=== PATIENT | male | born 1995 ===

== ENCOUNTER 2022-09-17 11:32 | Emergency (ER) | payer BC, SELFPAY ==
--- NOTE | ~2022-09-17 | XR_ITS ---
EXAMINATION: XR CHEST CLINICAL INFORMATION: Chest pain. COMPARISON: None available. TECHNIQUE: 2 views of the chest were obtained. FINDINGS: The lungs are clear. The cardiomediastinal silhouette is normal in size. There is no pleural effusion or pneumothorax. No acute osseous abnormality. XR/XR chest 2V IMPRESSION: No acute cardiopulmonary findings.
[2022-09-17 11:54] VITALS: BP 125/83; PULSE 82; RESP 20; TEMP 36.6; O2SAT 98; BMI 37.3
--- NOTE | 2022-09-17 11:57 | ED_ITS ---
HPI - General Adult General Chief complaint: Allergic Reaction Stated complaint: Reaction to Meds Time Seen by Provider: 09/17/22 13:14 Source: patient Mode of arrival: ambulatory Limitations: no limitations History of Present Illness HPI narrative: Patient is a 27 year old assigned male at with a history of depression and anxiety presenting to the emergency department today after an adverse medication reaction. Patient states that he took his first dose of his new Buproprion medication and immediately did not feel right and had what he believes to be a panic attack. Patient denies any dizziness, lightheadedness, abdominal pain, nausea, vomiting, fever, chills, blurry vision, double vision, loss of vision, chest pain, difficulty breathing, shortness of breath, back pain, night sweats, pain with urination, increased urinary frequency, increased urinary urgency, blood in his urine or stool, syncope or a near syncopal episode, recent trauma or falls, bowel incontinence, bladder incontinence, bowel retention, bladder retention, or any other complaints at this time. Onset (ago): hour(s) Relieving factors: none Exacerbating factors: none Associated symptoms: denies other symptoms Treatments prior to arrival: none Related Data Allergies Allergy/AdvReac Type Severity Reaction Status Date / Time bupropion [From Wellbutrin] Allergy Nausea Verified 09/17/22 12:03 Review of Systems Constitutional: Constitutional: Reports no additional constitutional complaints, Denies chills, Denies fever(s) and Denies night sweats Eyes: Eyes: Reports no additional eye complaints, Denies blurry vision, Denies change in vision, Denies diplopia, Denies eye discharge, Denies loss of vision and Denies eye pain ENT: Denies dizziness Cardiovascular: Cardiovascular: Reports no additional cardiovascular complaints, Denies chest pain, Denies lightheadedness, Denies Loss of Consciousness and Denies dyspnea Respiratory: Respiratory: Reports no additional respiratory complaints and Denies dyspnea Gastrointestinal: Gastrointestinal: Reports no additional gastrointestinal complaints, Denies abdominal pain, Denies melena, Denies hematochezia, Denies change in bowel habits and Denies change in stool character Genitourinary: Genitourinary: Reports no additional male genitourinary complaints, Denies hematuria, Denies oliguria, Denies difficulty urinating, Denies dysuria, Denies urinary frequency, Denies urinary hesitancy, Denies ur inary incontinence and Denies urinary urgency Musculoskeletal: Musculoskeletal: Reports no additional musculoskeletal complaints, Denies numbness and Denies tingling Neurologic: Denies dizziness, Denies loss of vision, Denies numbness and Denies tingling Psychiatric: Psychiatric: Reports no additional psychiatric complaints Endocrine: Endocrine: Reports no additional endocrine complaints Hematologic/Lymphatic: Hematologic/Lymphatic: Reports no additional hematologic/lymphatic complaints Allergic/Immunologic: Allergic/Immunologic: Reports no additional allergic/immunologic complaints [facility] Past Medical History Attestation statement: The following information was validated with the patient. Source: old records reviewed and nursing notes reviewed Medical History ADHD Anxiety Depression Social History Social History Alcohol intake: current Alcohol intake frequency: holidays/special occasions only Smoked in Last 30 Days: No Use of substances other than those prescribed or required for medical reasons: Yes Substance Use Type: Marijuana Substance Use Frequency: Daily Advance Directives: No Physical Exam ED Vital Signs: Vital Signs - 24 hr 09/17/22 11:54 09/17/22 13:11 Temperature 97.9 F 98.2 F Pulse Rate 82 68 Respiratory Rate 20 18 Blood Pressure 125/83 128/72 Pulse Oximetry 98 98 Oxygen Delivery Method Room Air Room Air BMI result Body Mass Index 37.3 Const General: cooperative, no acute distress, alert and awake Nutritional Appearance: well nourished Orientation/consciousness: patient oriented x3 Limitations: no limitations [facility] Head: Yes normal to inspection and Yes atraumatic Ears: hearing grossly normal bilaterally and external ears normal General nose exam: Normal external nose present, no nasal discharge noted and no epistaxis Face and sinus: Yes normal facial exam, No abrasion and No laceration Mouth: Normal oral and palatal mucosa present, no drooling and no muffled voice Eyes General: appearance normal, both eyes and all related structures Periorbital: periorbital findings normal Eyelids: Yes eyelids normal Conjunctivae: conjunctivae normal Pupils: Equal, round and reactive pupils present EOM: EOMs intact bilaterally Neck Neck: Yes normal visual inspection, Yes full ROM and Yes no lymphadenopathy Chest Chest palpation & inspection: normal inspection of the chest Resp Effort & Inspection: normal respiratory effort and able to speak in complete sentences Auscultation: clear to auscultation bilaterally Cardio Rate: regular rate Rhythm: regular rhythm GI Inspection: Yes normal to inspection Palpation (GI): Soft to palpation, not firm, nontender and no guarding Neuro General: patient oriented x3 and moves all extremities Cranial nerves: Yes Equal, round and reactive pupils present Cognition (Neuro): normal cognition Motor exam (neuro): 5/5 motor strength present throughout Sensory Exam: Normal double simultaneous stimulation for sensation Coordination: [id number] test normal Extrem General: Yes normal to inspection, Yes full ROM and Yes capillary refill normal Psych Appearance: grossly normal Mental Status: mental status grossly normal Affect: normal affect Attitude: cooperative Thought process: Normal thought process present Thought content: Normal thought content present Insight: Good insight present (Psych) Course Course Course Narrative: RME - This is a rapid medical evaluation, please defer HPI, ROS, PE to main ER provider. 27 y/o M, hx of anxiety and depression, who presents to the ER today for ?adverse medication reaction to Wellbutrin today. Patient states that 1.5 hours after taking dose of Wellbutrin for the first time today, he felt inability to control his emotions, headaches, chest pain, shortness of breath, and nausea. No trouble swallowing, difficulty breathing. He denies SI/HI. VSS in traige. Pt tearful and anxious. Uses psilocybin and marijuana recreationally, denies use today. No other drug use. No etoh use. Pt stable to return to the until treatment room is made available in the main ER. Plan: Labs, EKG ordered. Medical Decision Making Medical Decision Making [facility] Narrative: Patient is a 27 year old assigned male at with a history of anxiety and depression presenting to the emergency department today after an adverse reaction to medication. Patient's physical exam was unremarkable. Patient's blood work was unremarkable. Patient's EKG was unremarkable. Patient's chest x- ray showed no acute process. I explained my physical exam findings as well as all test results to the patient. I answered all questions asked by the patient. I stressed the importance of the patient taking his other medications as prescribed and stopping the buproprion until he see a psychiatrist. I stressed the importance of the patient following up with his primary care provider and a psychiatrist. I stressed the importance of the patient returning to the emerg ency department immediately if his symptoms were to worsen or if he were to develop any dizziness, shortness of breath, difficulty breathing, chest pain, blurry vision, loss of vision, nausea, vomiting, abdominal pain, fever, chills, back pain, or any other complaints. Patient verbalized agreement and understanding with this treatment plan and discharge. Differential Diagnosis Differential Diagnoses: The differential diagnosis associated with the presentation includes medication reaction Lab Data MDM Lab Attestation statement: I reviewed the patient's lab results. 09/17/22 12:34 09/17/22 12:34 Labs: Lab Results 09/17/22 09/17/22 09/17/22 Range/Units 12:34 12:34 12:34 WBC 4.9 (4.8-10.8) X10*3/uL RBC 4.84 (4.60-5.80) X10*6/uL Hgb 15.1 (14.0-18.0) g/dl Hct 42.5 (42.0-52.0) % MCV 87.8 (80.0-98.0) fL MCH 31.2 (27.0-33.0) pg MCHC 35.5 (31.0-36.0) g/dl RDW 11.5 (11.0-16.0) % Plt Count 215 (160-400) X10*3/uL MPV 9.7 (9.4-12.4) fL Immature Gran % (Auto) 0.4 (0.0-0.4) % Neut % (Auto) 67.4 (45-73) % Lymph % (Auto) 24.7 (20-40) % [place] % (Auto) 5.3 (2-11) % Eos % (Auto) 1.8 (0-4) % Baso % (Auto) 0.4 (0-2) % Lymph # (Auto) 1.2 (1.2-4.9) X10*3/uL [place] # (Auto) 0.3 (0.1-1.2) X10*3/uL Eos # (Auto) 0.1 (0.0-0.4) X10*3/uL Baso # (Auto) 0.0 (0.0-0.2) X10*3/uL Abs Immat Gran (auto) 0.02 (0.00-0.03) X10*3/uL Absolute Neuts (auto) 3.3 (2.0-8.3) x10*3/uL Absolute Nucleated RBC 0.000 (0.0-0.012) X10*3/uL Nucleated RBC % (auto) 0.0 (0.0-0.2) /100WBC Sodium 140 (135-145) mmol/L Potassium 4.4 (3.3-5.1) mmol/L Chloride 107 (96-108) mmol/L Carbon Dioxide 22 (22-29) mmol/L Anion Gap 15 (12-20) BUN 20 H (9-16) mg/dL Creatinine 0.83 (0.5-1.4) mg/dL Estim Creat Clear Calc 170.4 Estimated GFR > 60 Random Glucose 119 H (60-115) mg/dL Calcium 9.4 (8.4-10.2) mg/dL Magnesium 2.0 (1.6-2.6) mg/dL Total Bilirubin 1.0 (0.0-1.0) mg/dL Direct Bilirubin 0.2 (0.0-0.5) mg/dL AST 23 (5-37) U/L ALT 35 (0-40) U/L Alkaline Phosphatase 58 (39-117) U/L Troponin I High Sens < 2.7 (<3.5-35.0) ng/L Total Protein 7.0 (6.5-8.0) g/dL Albumin 4.5 (3.5-5.0) g/dL Lipase 25 (8-78) U/L Ethyl Alcohol mg/dL 09/17/22 Range/Units 12:34 WBC (4.8-10.8) X10*3/uL RBC (4.60-5.80) X10*6/uL Hgb (14.0-18.0) g/dl Hct (42.0-52.0) % MCV (80.0-98.0) fL MCH (27.0-33.0) pg MCHC (31.0-36.0) g/dl RDW (11.0-16.0) % Plt Count (160-400) X10*3/uL MPV (9.4-12.4) fL Immature Gran % (Auto) (0.0-0.4) % Neut % (Auto) (45-73) % Lymph % (Auto) (20-40) % [place] % (Auto) (2-11) % Eos % (Auto) (0-4) % Baso % (Auto) (0-2) % Lymph # (Auto) (1.2-4.9) X10*3/uL [place] # (Auto) (0.1-1.2) X10*3/uL Eos # (Auto) (0.0-0.4) X10*3/uL Baso # (Auto) (0.0-0.2) X10*3/uL Abs Immat Gran (auto) (0.00-0.03) X10*3/uL Absolute Neuts (auto) (2.0-8.3) x10*3/uL Absolute Nucleated RBC (0.0-0.012) X10*3/uL Nucleated RBC % (auto) (0.0-0.2) /100WBC Sodium (135-145) mmol/L Potassium (3.3-5.1) mmol/L Chloride (96-108) mmol/L Carbon Dioxide (22-29) mmol/L Anion Gap (12-20) BUN (9-16) mg/dL Creatinine (0.5-1.4) mg/dL Estim Creat Clear Calc Estimated GFR Random Glucose (60-115) mg/dL Calcium (8.4-10.2) mg/dL Magnesium (1.6-2.6) mg/dL Total Bilirubin (0.0-1.0) mg/dL Direct Bilirubin (0.0-0.5) mg/dL AST (5-37) U/L ALT (0-40) U/L Alkaline Phosphatase (39-117) U/L Troponin I High Sens (<3.5-35.0) ng/L Total Protein (6.5-8.0) g/dL Albumin (3.5-5.0) g/dL Lipase (8-78) U/L Ethyl Alcohol < 10 mg/dL Independent Interpretation I performed an independent interpretation of an: EKG Interpretation: Vent. Rate: 074 BPM ? ? Atrial Rate: 074 BPM P-R Int: 176 ms? QRS Dur: 092 ms QT Int: 400 ms ? ? ? P-R-T Axes: 046 048 007 degrees QTc Int: 444 ms ? Normal sinus rhythm with sinus arrhythmia Normal ECG No previous ECGs available Electronically Signed By:Lei Addison Dictated By: Lei Addison MD Signed By: Electronically signed by Lei Addison MD 09/17/222006 My interpretation is in agreement with the radiologist's impression of this imaging study. EXAMINATION: XR CHEST CLINICAL INFORMATION: Chest pain. COMPARISON: None available. TECHNIQUE: 2 views of the chest were obtained. FINDINGS: The lungs are clear. The cardiomediastinal silhouette is normal in size. There is no pleural effusion or pneumothorax. No acute osseous abnormality. XR/XR chest 2V IMPRESSION: No acute cardiopulmonary findings. Dictated By: Mina Duggan MD Signed By: Electronically signed by Mina Duggan MD 09/17/22 1311 Discharge Plan Discharge Clinical Impression: Adverse drug reaction Patient Disposition: Home, Self-Care Instructions: Adverse Drug Reaction (ED) Additional Instructions: STOP the medication that caused this reaction. Follow up with your primary care provider and psychiatrist. Return to the emergency department immediately if your symptoms worsen or if you develop any dizziness, shortness of breath, difficulty breathing, chest pain, blurry vision, loss of vision, nausea, vomiting, abdominal pain, fever, chills, back pain, or any other complaints. [facility]: [address] [place] [address] Walk in psychiatry from 10am - 12pm Open from 10am - 12pm [facility] Crisis Services: [address] [place] [id number] Walk in psychiatry from 10am - 12pm Open 25/11 [facility]: [address] [place] [id number] [address] [place] [address] Hours: M-F 8am to 8pm Friday and Friday 9am to 5pm Referrals: Kathy Rincon PA [Primary Care Provider] - Interventions: ED Discharge Assessment Last Done: 09/17/22 13:45 Discharge Date/Time: 09/17/22 13:45 Print Language: Estonian
--- NOTE | 2022-09-17 12:04 | ECG_ITS ---
Test Reason : CP Blood Pressure : / mmHG Vent. Rate : 074 BPM Atrial Rate : 074 BPM P-R Int : 176 ms QRS Dur : 092 ms QT Int : 400 ms P-R-T Axes : 046 048 007 degrees QTc Int : 444 ms Normal sinus rhythm with sinus arrhythmia Normal ECG No previous ECGs available Referred By: Debi Ordaz Electronically Signed By:Lei Addison
[2022-09-17 12:39] LABS: MANUAL DIFF FLAG NO
[2022-09-17 12:44] LABS: Basophils Percent Auto 0.4 % (0-2); Eosinophils Absolute Auto 0.1 X10*3/uL (0.0-0.4); Eosinophils Percent Auto 1.8 % (0-4); Hematocrit 42.5 % (42.0-52.0); Hemoglobin 15.1 g/dl (14.0-18.0); Imm Gran Abs Auto 0.02 X10*3/uL (0.00-0.03); Imm Gran Pct Auto 0.4 % (0.0-0.4); Lymphocytes Absolute Auto 1.2 X10*3/uL (1.2-4.9); Lymphocytes Percent Auto 24.7 % (20-40); Mean Corpuscular HGB Conc 35.5 g/dl (31.0-36.0); Mean Corpuscular Hemoglobin 31.2 pg (27.0-33.0); Mean Corpuscular Volume 87.8 fL (80.0-98.0); Mean Platelet Volume 9.7 fL (9.4-12.4); Monocytes Absolute Auto 0.3 X10*3/uL (0.1-1.2); Monocytes Percent Auto 5.3 % (2-11); Neutrophils Absolute Auto 3.3 x10*3/uL (2.0-8.3); Neutrophils Percent Auto 67.4 % (45-73); Platelet Count 215 X10*3/uL (160-400); Red Blood Count 4.84 X10*6/uL (4.60-5.80); Red Cell Distribution Width 11.5 % (11.0-16.0); White Blood Count 4.9 X10*3/uL (4.8-10.8)
[2022-09-17 13:04] LABS: Ethanol < 10 mg/dL
[2022-09-17 13:05] LABS: Alanine Aminotransferase 35 U/L (0-40); Albumin Level 4.5 g/dL (3.5-5.0); Alkaline Phosphatase 58 U/L (39-117); Anion Gap 15 (12-20); Aspartate Amino Transferase 23 U/L (5-37); Bilirubin Direct 0.2 mg/dL (0.0-0.5); Blood Urea Nitrogen 20 mg/dL (9-16); Calcium 9.4 mg/dL (8.4-10.2); Carbon Dioxide 22 mmol/L (22-29); Chloride 107 mmol/L (96-108); Creatinine Clr Calc Pharmacy 170.4; Estimated Glomerular Filt Rate > 60; Glucose Random 119 mg/dL (60-115); Lipase 25 U/L (8-78); Potassium 4.4 mmol/L (3.3-5.1); Sodium 140 mmol/L (135-145)
[2022-09-17 13:11] VITALS: BP 128/72; PULSE 68; RESP 18; TEMP 36.8; O2SAT 98
--- NOTE | 2022-09-17 13:13 | PC.NURSE ---
patient a&ox3, vss, pt denies si/hi, pt states he feels he had a panic attack, also states he just feels off, ekg performed in triage, labs previously drawn, call novoa within reach, will continue to monitor
--- OUTSIDE RECORDS SUMMARY | 2022-09-17 13:14 | XMS_ITS | Continuity of Care Document ---
Author Name Unknown Organization [facility] Address [address] [place] [address]- Care Team Providers Care Sign Letterer Name Role Phone Kathy Ruiz Primary Care Physician Encounter [facility] Date(s): 07/26/22 - 08/02/22 [facility] [address] [place] [address]- Encounter Diagnosis ADHD(Discharge Diagnosis) - 07/26/22 Cerumen impaction(Discharge Diagnosis) - 07/26/22 Attending Physician: Kathy Ruiz Allergies, Adverse Reactions, Alerts Substance Reaction Severity Status amoxicillin Active Immunizations Given and Recorded Vaccine Date Status Refusal Reason tetanus/diphtheria/pertussis, acel(Tdap) 06/21/22 Given tetanus/diphtheria/pertussis, acel(Tdap) 04/10/07 Recorded SARS-CoV-2 (COVID-19) mRNA BNT-162b2 vac 09/20/20 Recorded SARS-CoV-2 (COVID-19) mRNA BNT-162b2 vac 08/30/20 Recorded influenza virus vaccine, inactivated 02/08/19 Kobi rded Meningococcal Conjugate Vaccine 09/03/07 Recorded Varicella Virus Vaccine 04/10/07 Recorded Varicella Virus Vaccine 12/27/98 Recorded Poliovirus Vaccine, Inactivated 12/27/98 Recorded Poliovirus Vaccine, Inactivated 06/02/96 Recorded Poliovirus Vaccine, Inactivated 94 Recorded Poliovirus Vaccine, Inactivated 94 Recorded Measles/Mumps/Rubella Virus Vaccine 12/27/98 Recor ded Measles/Mumps/Rubella Virus Vaccine 08/28/95 Recor ded diphtheria/tetanus/pertussis, acel(DTaP) 12/27/98 Recorded diphtheria/tetanus/pertussis, acel(DTaP) 06/02/96 Recorded diphtheria/tetanus/pertussis, acel(DTaP) 94 Recorded diphtheria/tetanus/pertussis, acel(DTaP) 94 Recorded diphtheria/tetanus/pertussis, acel(DTaP) 94 Recorded haemophilus b conjugate (PRP-OMP)vaccine 08/28/95 Recorded haemophilus b conjugate (PRP-OMP)vaccine 94 Recorded haemophilus b conjugate (PRP-OMP)vaccine 94 Recorded tetanus-diphtheria toxoids (Td) 02/27/95 Recorded hepatitis B pediatric vaccine 94 Recorded hepatitis B pediatric vaccine 94 Recorded hepatitis B pediatric vaccine 94 Recorded Medications Concerta 18 mg oral tablet, extended release See Instructions, Take 2 tablets by mouth daily., # 60 tablet, 0 Refills, Maintenance, 07/12/22 8:56:00 EST, [id number], Partial fill upon patient request if the prescription is for a schedule II opioid drug., 176.1, cm, 06/21/22 12:49:00 EST,... Start Date: 07/12/22 Status: Ordered Concerta 36 mg oral tablet, extended release 1 tablet = 36 mg, By Mouth, Daily in AM, # 30 tablet, 0 Refills, Maintenance, 07/15/22 11:39:00 EDT, ER Tablet, [id number], Partial fill upon patient request if the prescription is for a schedule II opioid drug., 176.1, cm, 06/21/22 12:49:00 E... Start Date: 07/15/22 Status: Ordered Flonase 50 mcg/inh nasal spray 1 sprays, Nares, Both, 2 times a day, # 16 Gm, 3 Refills, Maintenance, 06/21/22 13:44:00 EST, [place], [id number], Partial fill upon patient request if the prescription is for a schedule II opioid drug., 1 sprays Nares, Both 2 times a day, 176.1... Start Date: 06/21/22 Status: Ordered Problem List Condition Confirmation Course Effective Dates Status Health St atus Informant ADHD Confirmed Active Cerumen impaction Confirmed Active Obese class II Confirmed Active Diagnosis Diagnosis Type Effective Dates Health Status Cl inical Service Informant ADHD Discharge Diagnosis 3/24/23 Cerumen impaction Discharge Diagnosis 07/26/22 Vital Signs Most recent to oldest [Reference Range]: 1 Height 176.1 cm (07/26/22 11:43 AM) Weight 116.4 kg (07/26/22 11:43 AM) Oxygen Saturation [94-100 %] 99 % (07/26/22 11:43 AM) Pulse Rate [55-90 bpm] 88 bpm (07/26/22 11:43 AM) Body Mass Index [18.5-24.99 kg/m2] 37.53 kg/m2 *>HHI* (07/26/22 11:43 AM) Blood Pressure [90-138/55-84 mm Hg] 126/ 83mm Hg (07/26/22 11:43 AM) Temperature [96.8-100.4 DegF] 97.7 DegF (07/26/22 11:43 AM) Mode of Delivery (Oxygen) Room air (07/26/22 11:43 AM) Blood pressure sites Arm, left (07/26/22 11:43 AM) Temperature Route Temporal (07/26/22 11:43 AM) Weight Obtained Via Standing scale (07/26/22 11:43 AM) Social History Social History Type Response Smoking Status Former smoker, quit more than 30 days ago; Type: Cigarettes; Type: Cigars; Tobacco use times per day: 6 months, 1ppd; entered on: 06/21/22 Sex Note * Krystina Ashby: PERFORM, SIGN, VERIFY Event Display: Patient Education/Instruction Authored Date: [id number] [facility] *[facility] Clinical Summary Name CHRIS BLANCHARD Age 27 Years 1995 PCP Sergey WALDEN, Kathy Ren PCP Visit Date 07/26/2022 11:05:00 Additional Instructions: Scheduled Appointments?? Future Appointments ?No Future Appointments Scheduled Follow-Up Instructions ?? Diagnosis Impacted cerumen, unspecified ear; Attention-deficit hyperactivity disorder, unspecified type Medications: Please continue your medications until treatment is completed or stopped by your provider. Discuss any questions related to medications with your provider. Medications to Continue with No Changes These medications were not printed or sent to your pharmacy Fluticasone Nasal (Flonase 50 mcg/inh nasal spray) 1 spray(s) Nares, Both twice a day. Refills: 3. Next Dose: Methylphenidate (Concerta 18 mg oral tablet, extended release) Take 2 tablets by mouth daily.. Refills: 0. Next Dose: Methylphenidate (Concerta 36 mg oral tablet, extended release) 1 tab(s) Oral Daily in the morning. Refills: 0. Next Dose: Allergy Info:?? amoxicillin Medications Given This Visit Future Orders ?No future orders Vital Signs Height 176.1 cm Weight 116.4 kg BMI 37.53 kg/m2 Blood Pressure 126 mm Hg/83 mm Hg Temperature 97.7 DegF Pulse Rate 88 bpm Respiratory Rate 02 Sat Mode of Delivery 99 %/Room air You can now view a summary of your hospital visit from the comfort of your home through a free online portal called [employer]. [employer] is a website that allows you to securely view your medical information including discharge summary, medications and follow-up visits. ??You can alsosend a secure electronic message to your doctor???s office to request appointments, renew medications or just ask a question. You can enroll at [email or web address] or register during your next office visit. Disclaimer:?? The information provided is of a general nature and is intended to be used in conjunction with the recommendations and advice of your health care practitioner. ??Every effort has been made to ensure that the information provided is accurate and complete at the time it is provided to you however, as your needs change, or, as new ??information becomes available, different or additional instructions may be required. If you have questions, please consult with your primary care provider or pharmacist, as appropriate. ??This information is not intended to serve as substitution for assessment and evaluation by a qualified health care provider. If you do not have a primary care provider, you may find a [facility] provider by calling [facility] [employer] at [phone]. For information about the plan of care including goals and instructions for your diagnosis, please see the patient education orders section of this document. Patient Education Materials?? The content of this educational material or handout may have been modified, supplemented, or adapted from its original content and format to support your individualized medical care. Patient Care team information Care Team Personnel Name: Kathy Ruiz Position: [facility] PCO Associate Professional Member Role: PCP Address: Address: [address] [place] [address]. [address] [place] [address]- Care Team Related Persons Name: CHRIS BLANCHARD Address: [address] [place] [address] Name: MEGAN BLANCHARD Address: [address] [place] [address] Name: MIGUEL OWENS Address: [address] [address]
--- OUTSIDE RECORDS SUMMARY | 2022-09-17 13:14 | XMS_ITS | Continuity of Care Document ---
Author Name Unknown Organization [facility] Address [address] [place] [address]- Care Team Providers Care Marine Steward Name Role Phone Leslie COOL, Jah Ordaz Primary Care Physician Encounter [facility] [id number] Date(s): 03/21/21 - 04/20/21 [facility] [place] [address] [place] [address]-
--- OUTSIDE RECORDS SUMMARY | 2022-09-17 13:15 | XMS_ITS | Continuity of Care Document ---
Author Name Unknown Organization [facility] Adult Address [address] [place] [address]- Care Team Providers Care Cargo Services Coordinator Name Role Phone Kathy Ruiz Primary Care Physician [facility]22 - 09/14/22 [facility] Adult [address] [place] [phone]- Allergies, Adverse Reactions, Alerts Substance Reaction Severity [...] tablet, 0 Refills, Maintenance, 07/12/22 8:56:00 EST, [facility]/pharmacy #[id number], Partial fill upon patient request if the prescription is for a schedule II opioid drug., 176.1, cm, 06/21/22 12:49:00 EST,... Start Date: 07/12/22 Status: Ordered Concerta 36 mg oral tablet, extended release 1 tablet = 36 mg, By Mouth, Daily in AM, # 30 tablet, 0 Refills, Maintenance, 08/15/22 14:45:00 EDT, ER Tablet, [id number], Partial fill upon patient request if the prescription is for a schedule II opioid drug., 176.1, cm, 07/26/22 11:43:00 E... Start Date: 08/15/22 Status: Ordered Flonase 50 mcg/inh nasal spray 1 sprays, Nares, Both, 2 times a day, # 16 Gm, 3 Refills, Maintenance, 06/21/22 13:44:00 EST, [place], [facility]/pharmacy #[id number], Partial fill upon patient request if the prescription is for a schedule II opioid drug., 1 sprays Nares, Both 2 times a day, 176.1... Start Date: 06/21/22 Status: Ordered Problem List Condition Confirmation Course Effective Dates Status Health St atus Informant ADHD Confirmed Active Cerumen impaction Confirmed Active Obese class II Confirmed Active Social History Social History Type Response Smoking Status Former smoker, quit more than 30 days ago; Type: Cigarettes; Type: Cigars; Tobacco use times per day: 6 months, 1ppd; entered on: 2/17/23 Sex Patient Care team information Care Team Personnel Name: Kathy Ruiz Position: [facility] PCO Associate Professional Member Role: PCP Address: Address: [address] [place] [address]- Care Team Related Persons Name: CHRIS BLANCHARD Address: [address] [place] [address] Name: MEGAN BLANCHARD Address: [address] [place] [address] Name: MIGUEL OWENS Address: home [address] [place] [address]
--- OUTSIDE RECORDS SUMMARY | 2022-09-17 13:15 | XMS_ITS | Continuity of Care Document ---
Author Name Unknown Organization [facility] Adult Address [address] [place] [id number]- Care Team Providers Care Water Manager Name Role Phone Sergey WALDEN, Kathy Ren Primary Care Physician [id number] Date(s): 06/21/22 - 06/28/22 [facility] Adult [address] [place] [address]- Encounter Diagnosis Screen for STD (sexually transmitted disease)(Discharge Diagnosis) - 06/21/22 ADHD(Discharge Diagnosis) - 06/21/22 Obese class II(Discharge Diagnosis) - 06/21/22 Left ear pain(Discharge Diagnosis) - 06/21/22 Cerumen impaction(Discharge Diagnosis) - 06/21/22 Attending Physician: Kyung Ortega MD Referring Physician: Kathy Ruiz Allergies, Adverse Reactions, Alerts [...] oral tablet, extended release See Instructions, Take 1 tablet by mouth daily in the morning for 7 days then increase to 2 tabletsby mouth daily in the morning., # 49 tablet, 0 Refills, Maintenance, 06/21/22 13:43:00 EST, [id number], Partial fill upon patient request if th... Start Date: 06/21/22 Status: Ordered Flonase 50 mcg/inh nasal spray 1 sprays, Nares, Both, 2 times a day, # 16 Gm, 3 Refills, Maintenance, 06/21/22 13:44:00 EST, [place], [id number], Partial fill upon patient request if the prescription is for a schedule II opioid drug., 1 sprays Nares, Both 2 times a day, 176.1... Start Date: 06/21/22 Status: Ordered Problem List Condition Confirmation Course Effective Dates Status Health St atus Informant ADHD Confirmed Active Cerumen impaction Confirmed Active Obese class II Confirmed Active Left ear pain Confirmed Active Diagnosis Diagnosis Type Effective Dates Health Status Clinical Service Informant Screen for STD (sexually transmitted disease) Discharge Diagnosis 06/21/22 ADHD Discharge Diagnosis 06/21/22 Obese class II Discharge Diagnosis 06/21/22 Left ear pain Discharge Diagnosis 06/21/22 Cerumen impaction Discharge Diagnosis 06/21/22 Vital Signs Most recent to oldest [Reference Range]: 1 Height 176.1 cm (06/21/22 12:49 PM) Weight 110.9 kg (06/21/22 12:49 PM) Oxygen Saturation [94-100 %] 97 % (06/21/22 12:49 PM) Pulse Rate [55-90 bpm] 72 bpm (06/21/22 12:49 PM) Body Mass Index [18.5-24.99 kg/m2] 35.76 kg/m2 *>HHI* (06/21/22 12:49 PM) Blood Pressure [90-138/55-84 mm Hg] 126/ 80mm Hg (06/21/22 12:49 PM) Temperature [96.8-100.4 DegF] 97.6 DegF (06/21/22 12:49 PM) Mode of Delivery (Oxygen) Room air (06/21/22 12:49 PM) Blood pressure sites Arm, left (06/21/22 12:49 PM) Temperature Route Temporal (06/21/22 12:49 PM) Weight Obtained Via Standing scale (06/21/22 12:49 PM) Social History Social History Type Response Smoking Status Former smoker, quit more than 30 days ago; Type: Cigarettes; Type: Cigars; Tobacco use times per day: 6 months, 1ppd; entered on: 06/21/22 Sex Note * Krystina Ashby: PERFORM, SIGN, VERIFY Event Display: Patient Education/Instruction Authored Date: [id number] [facility] *[facility] Clinical Summary Name CHRIS BLANCHARD Age 27 Years 1995 PCP Sergey WALDEN, [id number] Visit Date 06/21/2022 12:23:00 Additional Instructions: Scheduled Appointments?? Future Appointments ?*[facility] ?[address],??[address] ?Phone:??--?Fax:??-- ?Appt. Date:??07/26/2022?11:40 AM ?Scheduled Provider:??Sergey WALDEN, Kathy Ren Follow-Up Instructions ?? Diagnosis Otalgia, left ear; Impacted cerumen, unspecified ear; Encounter for screening for infections with apredominantly sexual mode of transmission; Attention- deficit hyperactivity disorder, unspecified type; Body mass index [BMI] 35.0- 35.9, adult Medications: Please continue your medications until treatment is completed or stopped by your provider. Discuss any questions related to medications with your provider. New Medications [facility]/pharmacy #[id number], [address] [place] [phone], [phone] Doxycycline (doxycycline hyclate 100 mg oral capsule) 1 capsule Oral Daily for 5 Days. may take with food to minimize abdominal discomfort. Refills: 0. Next Dose: Fluticasone Nasal (Flonase 50 mcg/inh nasal spray) 1 spray(s) Nares, Both twice a day. Refills: 3. Next Dose: Methylphenidate (Concerta 18 mg oral tablet, extended release) Take 1 tablet by mouth daily in the morning for 7 days then increase to 2 tablets by mouth daily in the morning.. Refills: 0. Next Dose: Allergy Info:?? amoxicillin Medications Given This Visit Medication Dose Route tetanus/diphtheria/pertussis, acel(Tdap) ((Tdap) diphtheria/pertussis, acel/tetanus vacc) 0.5 mL Intramuscular Future Orders ?Chlamydia/N. Gonorrhoeae TMA (NAAT)? Order Date:06/21/22?- Complete by?06/21/22 Vital Signs Height 176.1 cm Weight 110.9 kg BMI 35.76 kg/m2 Blood Pressure 126 mm Hg/80 mm Hg Temperature 97.6 DegF Pulse Rate 72 bpm Respiratory Rate 02 Sat Mode of Delivery 97 %/Room air You can now view a summary of your hospital visit from the comfort of your home through a free online portal called [employer]. [employer] is a website that allows you to securely view your medical information including discharge summary, medications and follow-up visits. ??You can alsosend a secure electronic message to your doctor???s office to request appointments, renew medications or just ask a question. You can enroll at [email or web address] or register during your next office visit. [...] primary care provider, you may find a [facility] provider by calling [facility] [employer] Link at [phone]. For information about the plan of care [...] Care Team Personnel Name: Kathy Ruiz Position: S PCO Associate Professional Member Role: PCP Address: Address: [address] [place] [address]- Care Team Related Persons Name: CHRIS BLANCHARD Address: [address] Name: MEGAN BLANCHARD Address: home [address] [place] [address] Name: MIGUEL OWENS Address: [address] [place] [address]
--- OUTSIDE RECORDS SUMMARY | 2022-09-17 13:15 | XMS_ITS | Continuity of Care Document ---
Author Name Unknown Organization [facility] Adult Address [address] [place] [address]- Care Team Providers Care Bird Raiser Name Role Phone Kathy Ruiz Primary Care Physician [facility] 07/15/22 - 08/14/22 [facility] Adult [address] [place] [phone]- Allergies, Adverse Reactions, Alerts Substance Reaction Severity [...] Gm, 3 Refills, Maintenance, 06/21/22 13:44:00 EST, [place], [facility]/pharmacy #[id number], Partial fill upon patient request if [...] Care Team Personnel Name: Kathy Ruiz Position: [facility] PCO Associate Professional Member Role: PCP Address: Address: [address] [place] [address]- Care Team Related Persons Name: CHRIS BLANCHARD Address: [address] [place] [address] Name: MEGAN BLANCHARD Address: [address] [place] [address] Name: MIGUEL OWENS Address: [address] [place] [address]
--- OUTSIDE RECORDS SUMMARY | 2022-09-17 13:15 | XMS_ITS | Continuity of Care Document ---
Author Name Unknown Organization [facility] Adult Address [address] [place] [address]- Care Team Providers Care Service Operations Manager Name Role Phone Kathy Ruiz Primary Care Physician [facility]s): 07/12/22 - 08/11/[address] [facility] Adult [address] [place] [phone]- Allergies, Adverse Reactions, Alerts Substance Reaction Severity [...] Gm, 3 Refills, Maintenance, 06/21/22 13:44:00 EST, [place], [facility]/pharmacy #[id number], Partial fill upon patient [...] Care Team Personnel Name: Kathy Ruiz Position: [facility] PCO Associate Professional Member Role: PCP Address: Address: [address] [place] [address]- Care Team Related Persons Name: CHRIS BLANCHARD Address: [address] [place] [address] Name: MEGAN BLANCHARD Address: [address] [place] [address] Name: MIGUEL OWENS Address: [address] [place] [address]
--- OUTSIDE RECORDS SUMMARY | 2022-09-17 13:15 | XMS_ITS | Continuity of Care Document ---
Author Name Unknown Organization [facility] Adult Address [address] [place] [address]- Care Team Providers Care Tire Spotter Name Role Phone Not on Staff, PCP Primary Care Physician Unavail able [facility] Date(s): 05/08/22 - 06/07/22 [facility] Adult [address] [place] [phone]- Allergies, Adverse Reactions, Alerts Substance Reaction Severity Status amoxicillin Active Social History Social History Type Response Smoking Status Former smoker, quit more than 30 days ago entered on: 05/01/21 Sex Patient Care team information Care Team Personnel Name: Not on Staff, PCP Position: S Physician (General Medicine) Member Role: PCP Care Team Related Persons Name: CHRIS BLANCHARD Address: [address] [place] [address] Name: MEGAN BLANCHARD Address: [address] [place], [place] Name: MIGUEL OWENS Address: [address] [place] [address]
--- OUTSIDE RECORDS SUMMARY | 2022-09-17 13:15 | XMS_ITS | Continuity of Care Document ---
Author Name Unknown Organization [facility] Adult Address [address] [place] [address]- Care Team Providers Care Drapery Hemmer Automatic Name Role Phone Kathy Ruiz Primary Care Physician [facility]s): 07/26/22 - 08/25/22 [facility] Adult [address] [place] [address]- Attending Physician: Javi Garcia Admitting Physician: Javi Garcia Referring Physician: AdmtrJavi Allergies, Adverse Reactions, Alerts Substance Reaction Severity [...] tablet, 0 Refills, Maintenance, 07/12/22 8:56:00 EST, [facility]/pharmacy #[id number], Partial fill upon patient request if the prescription is for a schedule II opioid drug., 176.1, cm, 06/21/22 12:49:00 EST,... Start Date: 07/12/22 Status: Ordered Concerta 36 mg oral tablet, extended release 1 tablet = 36 mg, By Mouth, Daily in AM, # 30 tablet, 0 Refills, Maintenance, 08/15/22 14:45:00 EDT, ER Tablet, [facility]/pharmacy #[id number], Partial fill upon patient request if the prescription is for a schedule II opioid drug., 176.1, cm, 07/26/22 11:43:00 E... Start Date: 08/15/22 Status: Ordered Flonase 50 mcg/inh nasal spray 1 sprays, Nares, Both, 2 times a day, # 16 Gm, 3 Refills, Maintenance, 06/21/22 13:44:00 EST, [place], [facility]/pharmacy #[id number], Partial fill upon patient request if the [...] 6 months, 1ppd; entered on: 06/21/22 Sex Patient Care team information Care Team Personnel Name: Kathy Ruiz Position: [facility] PCO Associate Professional Member Role: PCP Address: Address: [address] [place] [address]. [address] [place] [address]- Care Team Related Persons Name: CHRIS BLANCHARD Address: [address] [place] [address] Name: MEGAN BLANCHARD Address: [address] [place] [address] Name: MIGUEL OWENS Address: [address] [place] [address]
--- OUTSIDE RECORDS SUMMARY | 2022-09-17 13:15 | XMS_ITS | Continuity of Care Document ---
Author Name Unknown Organization [facility] Adult Address [address] [place] [address]- Care Team Providers Care Wrap Checker Name Role Phone Kathy Ruiz Primary Care Physician [facility] Date(s): 07/02/22 - 08/01/22 [facility] Adult [address] [place] [address]- Allergies, Adverse Reactions, Alerts Substance Reaction Severity [...] Gm, 3 Refills, Maintenance, 06/21/22 13:44:00 EST, [place], [facility]/pharmacy #[id number], Partial fill upon patient request if [...] Care Team Personnel Name: Kathy Ruiz Position: [facility] PCO Associate Professional Member Role: PCP Address: Address: [address] [place] [address]- Care Team Related Persons Name: CHRIS BLANCHARD Address: [address] [place] [address] Name: MEGAN BLANCHARD Address: [address] [place] [address] Name: MIGUEL OWENS Address: [address] [place] [address]
--- OUTSIDE RECORDS SUMMARY | 2022-09-17 13:15 | XMS_ITS | Continuity of Care Document ---
Author Name Unknown Organization [facility] Primary [facility] [place] Address [address] [place] [address]- Care Team Providers Care Clinical Assistant Name Role Phone Jah Nelson MD Primary Care Physician Encounter [facility] [id number] Date(s): 05/01/21 - 05/31/21 [facility] [place] [address] [place] [address]- Attending Physician: AdmJavi armstrong Admitting Physician: Admtr, Javi Referring Physician: Admtr, Ar8 Allergies, Adverse Reactions, Alerts Substance Reaction Severity Status amoxicillin Active Social History Social History Type Response Smoking Status Former smoker, quit more than 30 days ago entered on: 05/01/21 Sex
--- OUTSIDE RECORDS SUMMARY | 2022-09-17 13:15 | XMS_ITS | Continuity of Care Document ---
Author Name Unknown Organization [facility] Adult Address [address] [place] [address]- Care Team Providers Care Musical Instrument Maker Or Repairer Name Role Phone Kathy Ruiz Primary Care Physician Encounter [facility] Date(s): 06/24/22 - 07/24/[address] [facility] Adult [address] [place] [address]- Allergies, Adverse Reactions, Alerts Substance Reaction Severity [...] Gm, 3 Refills, Maintenance, 06/21/22 13:44:00 EST, [place], [facility]/pharmacy #[id number], Partial fill upon patient request if the prescription is for a schedule II opioid drug., 1 sprays Nares, Both 2 times a day, 176.1... Start Date: 06/21/22 Status: Ordered Problem List Condition Confirmation Course Effective Dates Status Health St atus Informant ADHD Confirmed Active Cerumen impaction Confirmed Active Obese class II Confirmed Active Left ear pain Confirmed Active Social History Social History Type Response Smoking Status Former smoker, quit more than 30 days ago; Type: Cigarettes; Type: Cigars; Tobacco use times per day: 6 months, 1ppd; entered on: 06/21/22 Sex Patient Care team information Care Team Personnel Name: Kathy Ruiz Position: [facility] PCO Associate Professional Member Role: PCP Address: Address: [address] [place] [address]- Care Team Related Persons Name: CHRIS BLANCHARD Address: [address] [place] [address] Name: MEGAN BLANCHARD Address: [address] [place] [address] Name: MIGUEL OWENS Address: [address] [place] [address]
[2022-09-17 13:30] LABS: Troponin-I High Sensitivity < 2.7 ng/L (<3.5-35.0)
== END 2022-09-17 13:45 | disposition home or self-care (01) ==
PROVIDERS: Physician Assistant Medical; Emergency Provider Emergency Medicine; PCP Student in an Organized Health Care Education/Training Program
DX: F41.9 Anxiety disorder, unspecified (principal); T43.295A Adverse effect of other antidepressants, initial encounter; Y92.9 Unspecified place or not applicable
CPT/HCPCS: 36415; 71046; 80048; 80076; 80307; 83690; 83735; 84484; 85025; 93005; 99283; 99284

== ENCOUNTER 2023-11-28 07:54 | Outpatient (AMB) | payer BC, SELFPAY ==
--- OUTSIDE RECORDS SUMMARY | 2023-11-28 07:55 | XMS_ITS | Continuity of Care Document ---
Author Organization [facility] Adult Address [address] [place] [address]- Care Team Providers Care Supervisory Forester Name Role Phone Sergey WALDEN, Kathy Ren Primary Care Physician [facility] Date(s): 07/02/23 - 07/09/23 [facility] [address] [place] [phone]- Encounter Diagnosis Adult general medical exam(Discharge Diagnosis) - 07/02/23 ADHD(Discharge Diagnosis) - 07/02/23 Depression(Discharge Diagnosis) - 07/02/23 Obese class II(Discharge Diagnosis) - 07/02/23 Dog bite of face(Discharge Diagnosis) - 07/02/23 Attending Physician: Kathy Ruiz Allergies, Adverse Reactions, Alerts Substance Reaction Severity Status amoxicillin Active Wellbutrin dizziness vomiting nausea Active Immunizations Given and Recorded Vaccine Date [...] hepatitis B pediatric vaccine 94 Recorded Medications cloNIDine 0.1 mg oral tablet 0.1 mg, 1, tablet, By Mouth, 2 times a day, # 180 tablet, Refills 0, Maintenance, 07/02/23 8:19:00 EST, Partial fill upon patient request if the prescription is for a schedule II opioid drug. Start Date: 07/02/23 Status: Ordered Concerta 36 mg oral tablet, extended release 1 tablet = 36 mg, By Mouth, Daily in AM, # 30 tablet, 0 Refills, Maintenance, 08/15/22 14:45:00 EDT, ER Tablet, [facility]/pharmacy #[id number], Partial fill upon patient request if the prescription is for a schedule II opioid drug., 176.1, cm, 07/26/22 11:43:00 E... Start Date: 08/15/22 Status: Ordered escitalopram 10 mg oral tablet 1 tablet = 10 mg, By Mouth, Daily, # 90 tablet, 0 Refills, Maintenance, 07/02/23 8:19:00 EST, Tablet, Partial fill upon patient request if the prescription is for a schedule II opioid drug. Start Date: 07/02/23 Status: Ordered Problem List Condition Confirmation Course Effective Dates Status Health St atus Informant ADHD Confirmed Active Cerumen impaction Confirmed Active Obese class II Confirmed Active Diagnosis Diagnosis Type Effective Dates Health Status Clinical Service Informant Adult general medical exam Discharge Diagnosis 07/02/23 ADHD Discharge Diagnosis 07/02/23 Depression Discharge Diagnosis 07/02/23 Obese class II Discharge Diagnosis 07/02/23 Dog bite of face Discharge Diagnosis 07/02/23 Vital Signs Most recent to oldest [Reference Range]: 1 Height 176.1 cm (07/02/23 8:04 AM) Weight 120 kg (07/02/23 8:04 AM) Oxygen Saturation [94-100 %] 99 % (07/02/23 8:04 AM) Pulse Rate [55-90 bpm] 84 bpm (07/02/23 8:04 AM) Body Mass Index [18.5-24.99 kg/m2] 38.7 kg/m2 *>HHI* (07/02/23 8:04 AM) Blood Pressure [90-138/55-84 mm Hg] 127/ 78mm Hg (07/02/23 8:04 AM) Respiratory Rate [16-30 br/min] 18 br/mi n (07/02/23 8:04 AM) Temperature [96.8-100.4 DegF] 98.1 DegF (07/02/23 8:04 AM) Mode of Delivery (Oxygen) Room air (07/02/23 8:04 AM) Blood pressure sites Arm, left (07/02/23 8:04 AM) Temperature Route Oral (07/02/23 8:04 AM) Weight Obtained Via Standing scale (07/02/23 8:04 AM) Social History Social History Type Response Smoking Status Former smoker, quit more than 30 days ago; Type: Cigarettes; Type: Cigars; Tobacco use times per day: 6 months, 1ppd; entered on: 06/21/22 Sex Note * Krystina Ashby: PERFORM, SIGN, VERIFY Event Display: Patient Education/Instruction Authored Date: [id number] [facility] *[facility] [place] [facility] Clinical Summary Name CHRIS BLANCHARD Age 28 Years 1995 PCP Sergey WALDEN, Kathy Ren PCP Visit Date 07/02/2023 07:49:00 Additional Instructions: Scheduled Appointments?? Future Appointments ?No Future Appointments Scheduled Follow-Up Instructions ?? With: Address: When: Kathy Ruiz Comments: 6 months with me Diagnosis Depression, unspecified; Attention-deficit hyperactivity disorder, unspecified type; Body mass index [BMI] 35.0-35.9, adult; Open bite of other part of head, initial encounter; Encounter for general adult medical examination without abnormal findings Medications: Please continue your medications until treatment is completed or stopped by your provider. Discuss any questions related to medications with your provider. New Medications [facility]/pharmacy #[id number], [address] [place] [phone], [phone] Doxycycline (doxycycline hyclate 100 mg oral capsule) 1 capsule Oral every 12 hours for 7 Days. Refills: 0. Next Dose: Medications to Continue Taking That Have Changed These medications were not printed or sent to your pharmacy - Methylphenidate (Concerta 36 mg oral tablet, extended release) 1 tab(s) Oral Daily in the morning. Refills: 0. Next Dose: Medications to Continue with No Changes These medications were not printed or sent to your pharmacy Clonidine (cloNIDine 0.1 mg oral tablet) 1 tab(s) Oral twice a day. Next Dose: Escitalopram (escitalopram 10 mg oral tablet) 1 tab(s) Oral Daily. Next Dose: Allergy Info:?? Wellbutrin; amoxicillin Medications Given This Visit Future Orders ?Lipid Panel? Order Date:07/02/23?- Complete by?07/02/23 ?TSH with T4 Reflex (Adults Only)? Order Date:07/02/23?- Complete by?07/02/23 ?CBC w/ Differential? Order Date:07/02/23?- Complete by?07/02/23 ?Comprehensive Metabolic Panel? Order Date:07/02/23?- Complete on or after?07/02/23 Vital Signs Height 176.1 cm Weight 120 kg BMI 38.7 kg/m2 Blood Pressure 127 mm Hg/78 mm Hg Temperature 98.1 DegF Pulse Rate 84 bpm Respiratory Rate 18 br/min 02 Sat Mode of Delivery 99 %/Room air You can now view a summary of your hospital visit from the comfort of your home through a free online portal called [employer]. [employer] is a website that allows you to securely view your medical information including discharge summary, medications and follow-up visits. ??You can alsosend a secure electronic message to your doctor???s office to request appointments, renew medications or just ask a question. You can enroll at [email or web address] or register during your next office visit. [...] primary care provider, you may find a [facility] provider by calling [facility] [employer] Link at [phone]. [facility], in keeping with [facility] guidance, no longer requires face masks for staff, patientsor visitors in most situations. Similar to time spent indoors at other locations, there is the chance that you were exposed to respiratory viruses during your time with us (such as flu or COVID-19).? If you develop symptoms concerning for a viral respiratory infection, please seek testing (and treatment if indicated) from your medical provider or home test kit. For information about the plan of care [...] Care Team Personnel Name: Kathy Ruiz Position: [facility] PCO Associate Professional Member Role: PCP Address: Address: [address] [place] [address]- Care Team Related Persons Name: CHRIS BLANCHARD Address: [address] [place] [address] Name: MEGAN BLANCHARD Address: [address] [place] [address] Name: MIGUEL OWENS Address: [address] [place] [address]
--- OUTSIDE RECORDS SUMMARY | 2023-11-28 07:56 | XMS_ITS | Continuity of Care Document ---
Author Organization [facility] Adult Address [address] [place] [address]- Care Team Providers Care Soda Jerker Name Role Phone Kathy Ruiz Primary Care Physician [facility] Date[facility]s): 09/21/22 - 01/19/23 [facility] [address] [place] [phone]- Attending Physician: Kathy Ruiz Allergies, Adverse Reactions, [...] tablet, 0 Refills, Maintenance, 07/12/22 8:56:00 EST, [facility]/pharmacy #[id number], Partial fill upon patient request if the prescription is for a schedule II opioid drug., 176.1, cm, 06/21/22 12:49:00 EST,... Start Date: 07/12/22 Status: Ordered Concerta 36 mg oral tablet, extended release 1 tablet = 36 mg, By Mouth, Daily in AM, # 30 tablet, 0 Refills, Maintenance, 08/15/22 14:45:00 EDT, ER Tablet, [facility]/pharmacy #[id number], Partial fill upon patient request if the prescription is for a schedule II opioid drug., 176.1, cm, 07/26/22 11:43:00 E... Start Date: 08/15/22 Status: Ordered Flonase 50 mcg/inh nasal spray 1 sprays, Nares, Both, 2 times a day, # 16 Gm, 3 Refills, Maintenance, 06/21/22 13:44:00 EST, [place], [facility]/pharmacy #[id number], Partial fill upon patient request if the [...] Care Team Personnel Name: Kathy Ruiz Position: [facility] PCO Associate Professional Member Role: PCP Address: Address: [address] [place] [address]- Care Team Related Persons Name: CHRIS BLANCHARD Address: [address] [place] [address] Name: MEGAN BLANCHARD Address: [address] [place] [address] Name: MIGUEL OWENS Address: [address] [place] [address]
[2023-11-28 08:08] VITALS: BP 136/80; PULSE 71; O2SAT 96; BMI 37.3
--- NOTE | 2023-11-28 08:08 | MHC.OFFWIV ---
Intake Vital Signs 11/28/23 08:08 Height 5 ft 10 in Weight 260 lb BMI 37.3 BP 136/80 Blood Pressure Location Rt brachial Position Sitting Pulse 71 Pulse Source Pulse Oximeter Pulse Oximetry (%) 96 Oxygen Delivery Method Room Air Intake Visit Reasons: Congestion Headache Fatigue Intake Note: pt is here for congestion with headache and fatigue Patient Tobacco Use Status: Current everyday Tobacco user Allergies bupropion [From Wellbutrin] Allergy (Verified 11/28/23 08:10) Nausea Do you need a note to return to daycare/school/sports/work: Yes HPI Congestion Headache Fatigue HPI Details This note is constructed using voice recognition software. While every effort has been made to ensure accuracy, oven tender errors may have been included. The patient is a 28 year old male who presents to the clinic today with congestion, headache and fatigue for 3 days. He denies fever, chills, reports initially starting with sore throat and cough which has resolved yesterday. He has generalized body aches. 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 He has been hydrating, using cough syrup and these things seem to be helping and he has also tried some ibuprofen as recommended by a co-worker. [facility] Medical History Depression Anxiety ADHD Social History Alcohol intake: current Alcohol intake frequency: holidays/special occasions only Patient Tobacco Use Status: Current everyday Tobacco user Substance Use Type: Marijuana Review of Systems Const All systems reviewed & are unremarkable except as noted in HPI and below Physical Exam Vital Signs: Last Vital Signs Pulse 71 11/28/23 08:08 BP 136/80 11/28/23 08:08 Pulse Ox 96 11/28/23 08:08 Oxygen Delivery Method Room Air 11/28/23 08:08 BMI result Body Mass Index 37.3 Const General: cooperative, healthy appearing, comfortable and no acute distress Orientation/consciousness: patient oriented x3 Limitations: no limitations HEENT Head: Yes normal to inspection Ears: hearing grossly normal bilaterally, external ears normal and TM's normal bilaterally General nose exam: Normal external nose present, Normal nares present and No nasal discharge present Face and sinus: Yes normal facial exam and Yes sinuses nontender Mouth: Normal oral and palatal mucosa present and moist mucous membranes Throat: Yes tonsils normal, Yes uvula midline and Yes posterior oropharynx abnormal (Erythema) Eyes General: appearance normal, both eyes and all related structures Neck Neck: Yes normal visual inspection Resp Effort & Inspection: normal respiratory effort, able to speak in complete sentences, Actively coughing, no respiratory distress, not tachypneic, no tripod positioning and no use of accessory muscles Auscultation: clear to auscultation bilaterally Cardio Jugular venous distension: no JVD Rate: regular rate Rhythm: regular rhythm Heart sounds: S1 normal heart sound present, S2 normal heart sound present, no click, no gallops, no murmurs and no rubs Skin General skin exam: no rashes or lesions noted, elasticity normal and turgor normal Neuro General: patient oriented x3 Extrem General: Yes normal to inspection and Yes no clubbing, cyanosis or edema Assessment & Plan Assessment & Plan (1) URI (upper respiratory infection): Code(s): J06.9 - Acute upper respiratory infection, unspecified Qualifiers: URI type: unspecified viral URI Qualified Code(s): J06.9 - Acute upper respiratory infection, unspecified Plan: Supportive measures encouraged and reviewed including hydration and humidification. COVID, flu, RSV test obtained today. Discussed treatment with antiviral therapy which he would like to proceed with if he is positive. Anticipate results later this afternoon. Advised quarantine per CDC guidelines, and appropriate mask wearing. Note provided for a out from work. Plan See above for full details and plan. Orders: Orders SARS-CoV2/FLU/RSV Today J06.9 - Acute upper respiratory infection, unspecified Coding Level of Care Code Est Pt Level 3 (06138) Diagnoses Viral upper respiratory tract infection J06.9 URI type: unspecified viral URI
== END 2023-11-28 08:41 | disposition home or self-care (01) ==
PROVIDERS: PCP Student in an Organized Health Care Education/Training Program; Visit Provider Registered Nurse
DX: J06.9 Acute upper respiratory infection, unspecified (principal)
CPT/HCPCS: 99213

== ENCOUNTER 2023-11-28 08:40 | Outpatient (REF) | payer BC, SELFPAY ==
[2023-11-28 11:12] LABS: Influenza A PCR NEGATIVE (Negative); Influenza B PCR NEGATIVE (Negative); Resp Syncy Virus RNA Qual PCR NEGATIVE (Negative); SARS COV2 PCR INHOUSE NEGATIVE (Negative)
== END 2023-11-28 08:41 | disposition home or self-care (01) ==
LOC: HO.LNP 08:40
PROVIDERS: Visit Provider Registered Nurse
DX: J06.9 Acute upper respiratory infection, unspecified (principal)
CPT/HCPCS: 0241U

== ENCOUNTER 2024-07-07 12:01 | Outpatient (AMB) | payer BC, SELFPAY ==
--- NOTE | 2024-07-07 12:04 | MHC.OFFWIV ---
Intake Vital Signs 07/07/24 12:05 Height 5 ft 10 in Weight 270 lb BMI 38.7 BP 130/82 Blood Pressure Location Rt brachial Position Sitting Pulse 86 Pulse Source Pulse Oximeter Pulse Oximetry (%) 98 Oxygen Delivery Method Room Air Intake Visit Reasons: EP Testicular Pain Patient Tobacco Use Status: Current everyday Tobacco user Allergies bupropion [From Wellbutrin] Allergy (Verified 07/07/24 12:05) Nausea Do you need a note to return to daycare/school/sports/work: Yes HPI HPI Comments History of Present Illness Details History of Present Illness - The patient is a 29-year-old male presenting with acute testicular pain. - The testicular pain commenced during a bowel movement and is described as a sensation of strain or pressure, persisting since onset. Denies fevers - Pain localization is noted behind the testicles, with spreading to the lower pelvic region without noted swelling or acute tenderness. - Pt had negative STI testing recently at his annual PE. Is sexually active with one female in a committed relationship, denies sex with men. - The patient has a history of hernias, principally related to previous prolonged physical exertion such as hiking. - Absence of urinary symptoms such as dysuria, urgency, or system-wide symptoms such as fevers. - Recent physical activity includes regular exercise, with possible exacerbation related to lifting. - Prior diagnostic or therapeutic evaluations for this condition have not been undertaken. Physical Exam General: Cooperative, healthy appearing, comfortable, no acute distress and well developed Orientation: Patient oriented x3 Limitations: No limitations Head: Normal to inspection Ears: Hearing grossly normal bilaterally Nose: Normal external nose present Face and sinus: Normal facial exam Eyes: Appearance normal, both eyes and all related structures Neck: Normal visual inspection and Yes full ROM Respiratory: Normal respiratory effort and able to speak in complete sentences. : see below Skin: No rashes or lesions noted Neuro: Patient oriented x3 Extremities: Normal to inspection [facility] Medical History Depression Anxiety ADHD Social History Alcohol intake: current Alcohol intake frequency: holidays/special occasions only Patient Tobacco Use Status: Current everyday Tobacco user Substance Use Type: Marijuana Review of Systems Const All systems reviewed & are unremarkable except as noted in HPI and below Physical Exam Vital Signs: Last Vital Signs Pulse 86 07/07/24 12:05 BP 130/82 07/07/24 12:05 Pulse Ox 98 07/07/24 12:05 Oxygen Delivery Method Room Air 07/07/24 12:05 BMI result Body Mass Index 38.7 Male General Exam: Yes normal external exam, No ecchymosis, No erythema, No hernia, No inguinal lymphadenopathy and No tenderness Penis: normal penis, no ecchymosis, not erythematous and no masses Meatus: meatus normal Scrotum: scrotum normal, no ecchymosis, not edematous, not erythematous, testes descended bilaterally, no inguinal hernias, no masses and no scrotal swelling Testes: Testes normal, testicular lie normal, epididymides normal, no blue dot sign, no epidiymal masses, epididymal tenderness bilateral, no testicular mass, no testicular swelling, normal testicular lie and other (negative novoa clapper deformity) Assessment & Plan Assessment & Plan (1) Epididymitis: Code(s): N45.1 - Epididymitis Plan: UA in office negative. No inguinal hernias noted on exam. TTP to posterior testes, bilaterally. Will treat for epidiymitis. The patient's acute testicular pain is suspected to be caused by epididymitis, for which a dual antibiotic regimen of ceftriaxone and doxycycline has been considered. Administration of 500mg IM ceftriaxone will occur on-site, and a prescription for a doxycycline course was arranged. The possibility of testicular torsion is deemed very low given current presentation, negative blue dot sign and negative novoa clapper deformity, but vigilance is advised should symptoms acutely intensify, pt was instructed to go to the ED. The patient has provided consent for urine testing to exclude urinary tract infection, and will be managed accordingly based on these results. Advised to follow up with PCP for US to identify if he does have inguinal hernias if pain persists. Patient was informed and verbally consented to the use of an ambient scribe for clinic note documentation during this visit. Orders: Orders AMB Ceftriaxone Injection Today N45.1 - Epididymitis Medications: New ceftriaxone 500 mg IM ONCE 1 ea 0RF epididymitis N45.1 - Epididymitis doxycycline hyclate 100 mg PO BID 20 tabs 0RF Coding Level of Care Code New Pt Level 4 (17889) Diagnoses Epididymitis N45.1
[2024-07-07 12:05] VITALS: BP 130/82; PULSE 86; O2SAT 98; BMI 38.7
--- OUTSIDE RECORDS SUMMARY | 2024-07-07 14:26 | XMS_ITS | Data Portability ---
Author Organization [facility], [address] Address [address] [place] [address] Assessment No assessment recorded. Plan of Treatment Reminders Order Date Submit Date Provider Last Modified By Organization Details Last Modified Time Details Appointments None recorde d. Lab drug screen, urine 022 04/18/20 [email or web address] [facility], [address] [place] [address], [place], [address], 2 14:56:51 Referral None recorde d. Procedures None recorde d. Surgeries None recorde d. Imaging None recorde d. Medication Orders None recorde d. Patient TargetsNo targets recorded. Patient InstructionsNo instructions recorded. Reason for Referral None Reported. Procedures Surgical History Date Name Laterality Status Provider Name and Address Organization Details Recorded Time 2 OC-UDS Send Out Template NON DOT completed [facility] 04/18/2022 08:50:02 Imaging Results None recorded. Procedure Notes None recorded. Medical Equipment None Reported. Vitals None Recorded Social History None recorded. Functional Status None recorded. Mental Status None recorded. Family History Nothing Reported. Medical History No medical history recorded. Past Encounters Encounter ID Performer Location Encounter Start Date Encounter Closed Date Diagnosis/Indication Diagnosis SNOMED-CT Code Diagnosis ICD10 Code Diagnosis Note [id number] [address] [address] 01/31/2016 17:42:39 01/31/2016 19:14:28 [id number] [address] [address] 12/31/2018 11:23:12/31/2018 11:39:55 [id number] [address] [place] [address] 08/17/2015 18:37:47 08/17/2015 19:52:44 [id number] [address] [facility] [place] [address] 11/16/2018 08:48:56 11/16/2018 09:30:55 [id number] [address] [facility] [place] [address] 10/13/2017 16:16:08 10/13/2017 16:40:29 [id number] [place] [address] [address] 04/18/2022 08:21:42 04/18/2022 08:59:35 History and physical examination, pre-employment [id number] Z02.1 Health Concerns Section Related Observation LastModified by Organization Detai ls LastModified Time None Recorded Concern Status LastModified by Organization Details LastModified Time None Recorded Advance Directives Directive None Recorded Payers Encounter Date Sequence Insurance Name Policy Number Policy Chopra Covered Member ID Chopra Member ID Guarantor Name 01/31/2016 1 [facility] [employer] - TOGETHER (MEDICAID HMO) Javier Rodríguez [id number] Javier Rodríguez 04/18/2022 [employer] KAILASH Javier Rodríguez
--- OUTSIDE RECORDS SUMMARY | 2024-07-07 14:27 | XMS_ITS | Continuity of Care Document ---
Author Organization [facility] Adult Address [address] [place] [id number]- Care Team Providers Care Pulmonary Fellow Name Role Phone Anaya WALDEN, Kathy Ren Primary Care [facility] Encounter [facility] [id number] Date(s): 06/17/24 - 06/24/[address] [address]- Encounter Diagnosis Depression(Discharge Diagnosis) - 06/17/24 ADHD(Discharge Diagnosis) - 06/17/24 Dyshidrotic eczema(Discharge Diagnosis) - 06/17/24 Severe obesity(Discharge Diagnosis) - 06/17/24 Pilonidal disease(Discharge Diagnosis) - 06/17/24 Attending Physician: Kathy Razo Encounter Type: Office Visit Allergies, Adverse Reactions, Alerts Substance Criticality Severity Reaction Reaction Severity Status amoxicillin Active Wellbutrin dizziness [...] hepatitis B pediatric vaccine 94 Recorded Medications escitalopram 10 mg oral tablet 1 tablet = 10 mg, By Mouth, Daily, # 90 tablet, 0 Refills, Maintenance, 07/02/23 8:19:00 AM EST, Tablet, Partial fill upon patient request if the prescription is for a schedule II opioid drug. Start Date: 07/02/23 Status: Ordered Quantity: 90.0 Unit: tablet Repeat number: 1 guanFACINE 2 mg oral tablet, extended release 1 tablet = 2 mg, By Mouth, Daily, do not crush or chew, # 90 tablet, 0 Refills, Maintenance, 06/17/24 4:14:00 PM EST, ER Tablet, Partial fill upon patient request if the prescription is for a scheduleII opioid drug. Start Date: 06/17/24 Status: Ordered Quantity: 90.0 Unit: tablet Repeat number: 1 lamotrigine 25 mg oral tablet TAKE 2 TABLETS BY MOUTH EVERY DAY IN THE MORNING Start Date: 01/01/24 Status: Ordered Repeat number: 1 Problem List Condition Confirmation Course Effective Dates Status Health St [facility] Informant ADHD Confirmed Active Depression Confirmed Active Cerumen impaction Confirmed Active Pilonidal disease Confirmed Active Severe obesity Confirmed Active Dyshidrotic eczema Confirmed Active Diagnosis Diagnosis Type Effective Dates Health Status Clinical Service Informant Depression Discharge Diagnosis 06/17/24 ADHD Discharge Diagnosis 06/17/24 Dyshidrotic eczema Discharge Diagnosis 06/17/24 Severe obesity Discharge Diagnosis 06/17/24 Pilonidal disease Discharge Diagnosis 06/17/24 Vital Signs Most recent to oldest [Reference Range]: 1 Height 176.1 cm (06/17/24 3:35 PM) Weight 124.8 kg (06/17/24 3:35 PM) Oxygen Saturation [94-100 %] 97 % (06/17/24 3:35 PM) Pulse Rate [55-90 bpm] 74 bpm (06/17/24 3:35 PM) Body Mass Index [18.5-24.99 kg/m2] 40.24 kg/m2 *>HHI* (06/17/24 3:35 PM) Blood Pressure [90-138/55-84 mm Hg] 126/ 78mm Hg (06/17/24 3:35 PM) Temperature [96.8-100.4 DegF] 99.3 DegF (06/17/24 3:35 PM) Mode of Delivery (Oxygen) Room air (06/17/24 3:35 PM) Blood pressure sites Arm, left (06/17/24 3:35 PM) Temperature Route Temporal (06/17/24 3:35 PM) Weight Obtained Via Standing scale (06/17/24 3:35 PM) Social History Social History Type Response Smoking Status Former smoker, quit more than 30 days ago; Type: Cigarettes; Type: Cigars; Tobacco use times per day: 6 months, 1ppd; entered on: 06/21/22 Sex Sex Representation Male (finding) Note * Liz Frances: PERFORM Event Display: Patient Education/Instruction Authored Date: [id number] Ambulatory Adult Visit Summary [facility] [address] [place] [address] Name: CHRIS BLANCHARD : 1995?? Visit: 06/17/2024 15:24?? Ambulatory Visit Instructions ?? Your Care Team Primary Care Provider Kathy Razo? This Visit Provider Kathy Razo Your Diagnosis Depression ADHD Dyshidrotic eczema Severe obesity Pilonidal disease Vitals Signs Temperature: 99.3 DegF Height: 176.1 cm Pulse Rate: 74 bpm Weight: 124.8 kg Systolic Blood Pressure: 126 mm Hg Body Mass Index:??40.24 kg/m2??Critical Diastolic Blood Pressure: 78 mm Hg Body surface area: 2.47 Oxygen Saturation: 97 % ?? What to do next Follow-Up Appointments Follow Up with??Kathy Razo When:??05/06/2025 01:30 PM EST Why: physical Where: [address] [place] [address]- Future Orders CBC w/ Differential - Once, *Est. 07/02/23, Single or Recurring Future Order?? Comprehensive Metabolic Panel - Once, *Est. 07/02/23, Order for Today?? Lipid Panel - Once, *Est. 07/02/23, Single or Recurring Future Order?? TSH with T4 Reflex (Adults Only) - Once, *Est. 07/02/23, Single or Recurring Future Order?? Medications The list below reflects the information in our records and provided by you today along with any changes made during this visit. Please continue your medications until treatment is completed or stopped by your provider. If this is different from the information you have or there are other questions,please contact the prescribing provider. What How Much When Instructions Unchanged Escitalopram (escitalopram 10 mg oral tablet) 1 tab(s) Oral Daily Unchanged Guanfacine (guanFACINE 2 mg oral tablet, extended release) 1 tab(s) Oral Daily do not crush or chew ?? Unchanged Lamotrigine (lamotrigine 25 mg oral tablet) TAKE 2 TABLETS BY MOUTH EVERY DAY IN THE MORNING ?? Medications and Immunizations Administered Medications Given During Visit No medications given during this visit.?? Allergies (NKA means No Known Allergies) Wellbutrin??(dizziness, vomiting, nausea) amoxicillin Common Emergency Awareness Tips IS IT A STROKE? Act FAST and Check for these signs: FACE Does the face look uneven? ARM Does one arm drift down? SPEECH Does their speech sound strange? TIME Call at any sign of stroke ?? Heart Attack Signs Chest discomfort: Most heart attacks involve discomfort in the center of the chest and lasts more than a few minutes, or goes away and comes back. It can feel like uncomfortable pressure, squeezing, fullness or pain. Discomfort in upper body: Symptoms can include pain or discomfort in one or both arms, back, neck, jaw or stomach. Shortness of breath: With or without discomfort. Other signs: Breaking out in a cold sweat, nausea, or lightheaded. Remember, MINUTES DO MATTER. If you experience any of these heart attack warning signs, call to get immediate medical attention! ?? Smoking can increase your chances of developing chronic health problems and can cause harmful effects to other family members in your house. If you smoke, you are strongly encouraged to quit. Please call [facility] at [phone] or [phone] ([phone]) or log in to [email or web address] for referrals to smoking cessation programs. ?? The National Suicide Prevention Hotline is available 25/11 if you or someone you know needs to find a reason to keep living. By calling 6-613-267-Zumigo (9523) you'll be connected to a skilled, trained counselor at a crisis center in your area. [facility] [employer] Portal You can view and manage your care through the patient portal or by using a health care silas of your choosing. [employer] is a website that allows you to securely view your medical information including your hospital discharge summary, office visit summaries, medications and follow-up visits. You can also request appointments, renew medications, and request access to your medical information using a health care silas of your choosing, or just ask a question. You can enroll at [email or web address] or register during your next office visit. [facility], in keeping with [facility] guidance, no longer requires face masks for staff, patientsor visitors in most situations. Similiar to time spent indoors at other locations, there is the chance that you were exposed to repiratory viruses during your time with us (such as flu or COVID-19). If you develop symptoms concerning for a viral respiratory infection, please seek testing (and treatment if indicated) from your medical provider or home test kit. ?? Disclaimer: The information provided is of a general nature and is intended to be used in conjunction with the recommendations and advice of your health care practitioner. Every effort has been made to ensure that the information provided is accurate and complete at the time it is provided to you however, as your needs change, or, as new information becomes available, different or additional instructions may be required. ?? If you have questions, please consult with your primary care provider or pharmacist, as appropriate. This information is not intended to serve as substitution for assessment and evaluation by a qualified health care provider. If you do not have a primary care provider, you may find a [facility] provider by calling [facility] at [phone]. Patient Care team information Care Team Personnel Name: Anaya WALDEN, Kathy Ren Position: [facility] PCO Associate Professional Member Role: PCP [address]: [address] [place] [address]. [address] [place], [place] [id number]: Care Team Related Persons Name: CHRIS BLANCHARD Name: MEGAN BLANCHARD Name: MIGUEL OWENS Insurance Providers Guarantor name: NA Health Plan Information #: 1 Payer: [employer] Member Number: [id number] Policy Number: NA Group Number: NA Health Plan Information #: 2 Payer: [employer] Member Number: [id number] Policy Number: NA Group Number: NA
== END 2024-07-07 13:13 | disposition home or self-care (01) ==
PROVIDERS: PCP Student in an Organized Health Care Education/Training Program; Visit Provider Physician Assistant
DX: N45.1 Epididymitis (principal); Z13.9 Encounter for screening, unspecified

== ENCOUNTER → 2024-07-07 12:01 | Outpatient (BNVA) | payer BC, SELFPAY | PROVIDERS: PCP Student in an Organized Health Care Education/Training Program; Visit Provider Physician Assistant | DX: N45.1 Epididymitis (principal) | CPT/HCPCS: 81003; 96372; J0696 ==